=== PATIENT | female | born 1945 | race Caucasian/White ===

== ENCOUNTER 2022-03-22 09:50 | Inpatient (IN) | payer MEDICARE, OTHER ==
[~2022-03-22] VITALS: Ht 154.9 cm; Wt 54.9 kg
[2022-03-22 10:40] VITALS: BP 154/82
[2022-03-22] MEDS ORDERED: BLOOD SUGAR DIAGNOSTIC 1 EACH STRIP VI ONE (10:45)
[2022-03-22] MEDS ORDERED: MAG HYDROX/AL HYDROX/SIMETH 30 ML LIQUID UDC PO PRN (10:45)
[2022-03-22] MEDS ORDERED: MAGNESIUM HYDROXIDE 30 ML LIQUID UDC PO PRN (10:45)
[2022-03-22] MEDS ORDERED: LORAZEPAM 0.5 MG TABLET PO PRN (10:45)
--- NOTE | 2022-03-22 11:00 | NUR ---
Admitted a case of 76 years old female from ER with history of Psychosis. Patient is on 5150 status. Patient arrived in a stretcher accompanied by RN. Initial report given by Lara WYNN. On admission patient was cooperative to physical assessment and vital signs. Skin body assessment revealed no significant skin integrity breakdown. Patient is continent of bladder and bowel. Vital signs within normal limits. Patient ambulates independently, lower extremities with normal limits. Upon face to face, patient appeared oriented to person, confused, redirectable, cooperative. Patient refused to sign to all admission documents. Patient was also offered brief orientation to unit rules and policies and given a copy of patient's rights handbook. Patient belongings were accounted and contraband removed. Psychiatrist Dr. Logan and Hospice Fellow Merly Fan were informed and orders were carried out. Patient is currently free from pain or any discomfort. Reassurance given. Fall and safety precautions implemented.
[2022-03-22 16:00] VITALS: BP 102/65
--- NOTE | 2022-03-22 17:41 | NUR ---
Patient is confused, disoriented, disorganized, cooperative with nursing care, paranoid about her belongings. Requires minimal assistance with ADL. Patient is A/O X 2 to person. Emotional support provided. Fall and safety precautions implemented.
[2022-03-22 20:06] VITALS: BP 132/66
[2022-03-23] MEDS: ZOLPIDEM 5 MG TABLET PO PRN ×2 (00:27→21:16)
--- NOTE | 2022-03-23 03:16 | NUR ---
GPS NOTES: Patient received with family member (daughter) in the room. Patient sleeping in the room after daughters visit. Patient woke up at 23:30, she is then wandering the unit, confused and constant re-direction needed. Language barrier identified as she only speaks [place] Citizen. She appears pleasant and cooperative with the newspaper writer. Fluids provided. Ambien given. Not effective. Patient stays mostly awake during shift. All safety measures in placed.
[2022-03-23 07:27] LABS: HEMATOCRIT 36.8 % (31.2-41.9); MEAN CORPUSCULAR HEMOGLOBIN 32.2 uug (24.7-32.8); MEAN CORPUSCULAR VOLUME 93.7 fL (75.5-95.3); PLATELET COUNT (AUTO) 219 K/uL (179-408)
[2022-03-23 07:30] VITALS: BP 113/69
[2022-03-23 07:34] LABS: CREATININE 1.1 mg/dL (0.6-1.3); POTASSIUM 4.1 mmol/L (3.5-5.1)
[2022-03-23] MEDS: MEMANTINE HCL 10 MG TABLET PO SCH ×2 (11:11→21:16)
[2022-03-23] MEDS: QUETIAPINE FUMARATE 25 MG TABLET PO SCH ×2 (11:11→17:01)
[2022-03-23] MEDS ORDERED: HYDR25TA86 GT (12:59)
[2022-03-23] MEDS ORDERED: MEMA10TA PO (12:59)
[2022-03-23] MEDS ORDERED: CELE-85 PO (13:00)
[2022-03-23] MEDS ORDERED: ALBU8.5H8 IH (13:00)
[2022-03-23] MEDS ORDERED: ASPI81TA31 PO (13:00)
[2022-03-23] MEDS ORDERED: ONDA-104 PO (13:00)
[2022-03-23] MEDS ORDERED: DONE5TAB34 PO (13:00)
[2022-03-23] MEDS ORDERED: TIMO5DRO18 EACHEYE (13:00)
[2022-03-23] MEDS ORDERED: ICOS1CAP PO (13:00)
[2022-03-23] MEDS ORDERED: QUET25TA PO (13:00)
[2022-03-23] MEDS ORDERED: CLON0.1T PO (13:00)
[2022-03-23] MEDS ORDERED: NORT25CA PO (13:00)
[2022-03-23] MEDS ORDERED: MONT10TA33 PO (13:00)
[2022-03-23] MEDS ORDERED: FURO40TA5 PO (13:00)
[2022-03-23] MEDS ORDERED: FOLI1TAB94 PO (13:00)
[2022-03-23] MEDS ORDERED: ROSU20TA2 PO (13:00)
[2022-03-23] MEDS ORDERED: NITR1PAT26 TD (13:00)
[2022-03-23] MEDS ORDERED: LUBI24CA5 PO (13:00)
[2022-03-23] MEDS ORDERED: FLUT1BLS6 IH (13:00)
[2022-03-23] MEDS ORDERED: PANT40TA49 PO (13:00)
[2022-03-23] MEDS: ACETAMINOPHEN 325 MG TABLET PO PRN (13:11)
--- NOTE | 2022-03-23 15:27 | NUR ---
Received patient awake in the hallway. Patient is cooperative with nursing care, compliant with medications, confused, disorganized, pleasant, calm. Patient is A/O X 2 to person. Tylenol 650 mg is given at 13:11 for lower back pain,effective. Reassurance given. Fall and safety precautions implemented.
[2022-03-23] MEDS ORDERED: ALBUTEROL SULFATE 8 GM HFA.AER.AD IH PRN (15:30)
[2022-03-23] MEDS ORDERED: ALBUTEROL SULFATE 2.5 MG/3 ML NEBU NEB PRN (15:30)
--- NOTE | 2022-03-23 15:45 | NUR ---
KAMRYN Initial Discharge Note: Pt currently resides at home located at [address] [place] [address]. Per pt's daughter, Vandana ([phone]), pt will either discharge home under the care of a full-time caregiver or to a long term facility upon discharge. KAMRYN will continue to work with pt, Vandana and to ensure a safe and proper discharge plan.
--- NOTE | 2022-03-23 15:46 | NUR ---
SW Family Contact: SW spoke with pt's daughter/DPOA, Elliot ([phone]), regarding pt's treatment and discharge plan. SW addressed all of Elliot's questions regarding pt's treatment at [facility] and her conversation with Dr. Logan via telephone. Elliot was very grateful and agreeable with the treatment plan. Elliot and this SW discussed pt's options upon discharge regarding home with caregiver or senior living facility. elliot stated she is open to suggestions by Dr. Logan and this SW. Elliot is agreeable to take it day by day and follow-up with pt's treatment with this SW throughout pt's stay.
--- NOTE | 2022-03-23 15:56 | NUR ---
Firearms Report: Regulatory Specialist completed and submitted a DOJ firearms report for 5150 grave disability certifications. A copy of report has been placed in patient chart.
[2022-03-23 16:00] VITALS: BP 118/78
[2022-03-23] MEDS: hydrALAZINE HCL 25 MG TABLET PO SCH (17:00)
[2022-03-23] MEDS: CLONIDINE HCL 0.1 MG TABLET PO SCH (17:00)
[2022-03-23] MEDS ORDERED: Medication Not On Formulary EA (Lubiprostone (Amitiza) 24 MCG) PO SCH (17:00)
[2022-03-23] MEDS: TIMOLOL MALEATE 0.5% OPHT DROP 5 ML BOTTLE EACHEYE SCH (17:02)
[2022-03-23 20:08] VITALS: BP 100/51
[2022-03-23] MEDS ORDERED: Medication Not On Formulary EA (Rosuvastatin Calcium (Crestor) 20 MG) PO SCH (21:00)
[2022-03-23] MEDS: DONEPEZIL 10 MG TABLET PO SCH (21:15)
[2022-03-23] MEDS: MONTELUKAST SODIUM 10 MG TABLET PO SCH (21:16)
[2022-03-23] MEDS: ATORVASTATIN 40 MG TABLET PO SCH (21:16)
--- NOTE | 2022-03-24 06:34 | NUR ---
GPS: SHIFT NOTE: RECEIVED PATIENT IN [place] PACING FROM NURSES STATION TO HER ROOM. PT IS COOPERATIVE WITH STAFF. PT IS COMPLIANT WITH MEDICATION NO ADVERSE REACTION FROM MEDICATION AND PT DENIES PAIN WHEN ASKED. BUT PT IS DISHEVELED IN DRESS AND APPEARS TO BE DISORGANIZED IN THOUGHTS AND THINGS SHE SAYS BUT SHE IS NOT ARGUMENTATIVE OR AGITATED. FALL AND SAFETY PRECAUTION MAINTAINED ORDERED.
[2022-03-24 07:30] VITALS: BP 129/73
[2022-03-24] MEDS: PANTOPRAZOLE SODIUM 40 MG TABLET.DR PO SCH (08:39)
[2022-03-24] MEDS: TIMOLOL MALEATE 0.5% OPHT DROP 5 ML BOTTLE EACHEYE SCH ×2 (08:40→17:24)
[2022-03-24] MEDS: hydrALAZINE HCL 25 MG TABLET PO SCH ×3 (08:42→17:00)
[2022-03-24] MEDS: FOLIC ACID 1 MG TABLET PO SCH (08:44)
[2022-03-24] MEDS: MEMANTINE HCL 10 MG TABLET PO SCH (08:44)
[2022-03-24] MEDS: QUETIAPINE FUMARATE 25 MG TABLET PO SCH ×2 (08:44→17:23)
[2022-03-24] MEDS: CELECOXIB 200 MG CAPSULE PO SCH (08:45)
[2022-03-24] MEDS: FUROSEMIDE 40 MG TABLET PO SCH (08:45)
[2022-03-24] MEDS: ASPIRIN 81 MG TAB.CHEW PO SCH (08:51)
[2022-03-24] MEDS: CLONIDINE HCL 0.1 MG TABLET PO SCH ×3 (08:52→17:00)
[2022-03-24] MEDS ORDERED: DONEPEZIL 5 MG TABLET PO SCH (09:00)
--- NOTE | 2022-03-24 14:28 | NUR ---
Received patient wandering in the hallway. Patient is A/O X 1 to person. Patient is confused, forgetful, disoriented, disorganized, trying to elope, compliant with medications. Patient requires more than minimal assistance with ADL. Reassurance given. Fall and safety precautions implemented.
[2022-03-24 16:51] VITALS: BP 106/59
[2022-03-24 20:40] VITALS: BP 101/60
[2022-03-24] MEDS: DONEPEZIL 10 MG TABLET PO SCH (21:19)
[2022-03-24] MEDS: ATORVASTATIN 40 MG TABLET PO SCH (21:19)
[2022-03-24] MEDS: MONTELUKAST SODIUM 10 MG TABLET PO SCH (21:19)
[2022-03-25] MEDS: LORAZEPAM 1 MG TABLET PO PRN (00:14)
--- NOTE | 2022-03-25 03:03 | NUR ---
Patient has been cooperative and compliant with medications. Reassurance provided frequently d/t confusion and the patient has labile moods. Happy and smiling one minute, then crying the next. Safety Stratiges are in place and Frequent rounding to ensure assistance to the patient when needed.
[2022-03-25] MEDS: PANTOPRAZOLE SODIUM 40 MG TABLET.DR PO SCH (06:05)
[2022-03-25 08:03] VITALS: BP 93/46
[2022-03-25] MEDS: ASPIRIN 81 MG TAB.CHEW PO SCH (08:37)
[2022-03-25] MEDS: TIMOLOL MALEATE 0.5% OPHT DROP 5 ML BOTTLE EACHEYE SCH ×2 (08:37→17:34)
[2022-03-25] MEDS: FOLIC ACID 1 MG TABLET PO SCH (08:37)
[2022-03-25] MEDS: MEMANTINE HCL 10 MG TABLET PO SCH (08:37)
[2022-03-25] MEDS: CELECOXIB 200 MG CAPSULE PO SCH (08:38)
[2022-03-25] MEDS: QUETIAPINE FUMARATE 25 MG TABLET PO SCH ×2 (08:38→17:36)
[2022-03-25] MEDS: hydrALAZINE HCL 25 MG TABLET PO SCH ×3 (08:40→17:35)
[2022-03-25] MEDS: FUROSEMIDE 40 MG TABLET PO SCH (08:42)
[2022-03-25] MEDS: GLUCERNA SHAKE 237 ML CAN PO SCH (08:42)
[2022-03-25] MEDS: CLONIDINE HCL 0.1 MG TABLET PO SCH ×3 (08:42→17:36)
[2022-03-25 16:12] VITALS: BP 123/72
[2022-03-25 19:51] VITALS: BP 98/46
[2022-03-25] MEDS: ATORVASTATIN 40 MG TABLET PO SCH (21:12)
[2022-03-25] MEDS: MONTELUKAST SODIUM 10 MG TABLET PO SCH (21:12)
[2022-03-25] MEDS: DONEPEZIL 10 MG TABLET PO SCH (21:12)
[2022-03-26] MEDS: PANTOPRAZOLE SODIUM 40 MG TABLET.DR PO SCH (05:18)
[2022-03-26 08:03] VITALS: BP 153/92
[2022-03-26] MEDS: FOLIC ACID 1 MG TABLET PO SCH (08:21)
[2022-03-26] MEDS: QUETIAPINE FUMARATE 25 MG TABLET PO SCH ×2 (08:21→16:37)
[2022-03-26] MEDS: ASPIRIN 81 MG TAB.CHEW PO SCH (08:21)
[2022-03-26] MEDS: hydrALAZINE HCL 25 MG TABLET PO SCH ×3 (08:22→16:38)
[2022-03-26] MEDS: FUROSEMIDE 40 MG TABLET PO SCH (08:22)
[2022-03-26] MEDS: MEMANTINE HCL 10 MG TABLET PO SCH (08:22)
[2022-03-26] MEDS: GLUCERNA SHAKE 237 ML CAN PO SCH (08:23)
[2022-03-26] MEDS: CLONIDINE HCL 0.1 MG TABLET PO SCH ×3 (08:24→16:39)
[2022-03-26] MEDS: TIMOLOL MALEATE 0.5% OPHT DROP 5 ML BOTTLE EACHEYE SCH ×2 (08:25→16:40)
[2022-03-26] MEDS: CELECOXIB 200 MG CAPSULE PO SCH (08:26)
[2022-03-26] MEDS: LORAZEPAM 1 MG TABLET PO PRN ×2 (12:54→20:09)
[2022-03-26] MEDS: ACETAMINOPHEN 325 MG TABLET PO PRN (12:55)
--- NOTE | 2022-03-26 15:23 | NUR ---
Received Patient is confused, disoriented, disorganized, cooperative with nursing care and medication . Cuban speaking only pacing in hallway with poor insight and poor judgement Requires minimal assistance with ADL. Patient is A/O X 2 to person. Emotional support provided. Fall and safety precautions implemented.
[2022-03-26 19:54] VITALS: BP 136/72
[2022-03-26] MEDS: DONEPEZIL 10 MG TABLET PO SCH (20:09)
[2022-03-26] MEDS: MONTELUKAST SODIUM 10 MG TABLET PO SCH (20:09)
[2022-03-26] MEDS: ATORVASTATIN 40 MG TABLET PO SCH (20:09)
[2022-03-27] MEDS: PANTOPRAZOLE SODIUM 40 MG TABLET.DR PO SCH (06:00)
[2022-03-27 08:12] VITALS: BP 127/72
[2022-03-27] MEDS: ASPIRIN 81 MG TAB.CHEW PO SCH (08:29)
[2022-03-27] MEDS: FUROSEMIDE 40 MG TABLET PO SCH (08:29)
[2022-03-27] MEDS: QUETIAPINE FUMARATE 25 MG TABLET PO SCH ×3 (08:29→20:47)
[2022-03-27] MEDS: MEMANTINE HCL 10 MG TABLET PO SCH (08:30)
[2022-03-27] MEDS: CELECOXIB 200 MG CAPSULE PO SCH (08:30)
[2022-03-27] MEDS: CLONIDINE HCL 0.1 MG TABLET PO SCH ×3 (08:31→17:00)
[2022-03-27] MEDS: hydrALAZINE HCL 25 MG TABLET PO SCH ×3 (08:32→17:00)
[2022-03-27] MEDS: TIMOLOL MALEATE 0.5% OPHT DROP 5 ML BOTTLE EACHEYE SCH ×2 (08:33→17:22)
[2022-03-27] MEDS: FOLIC ACID 1 MG TABLET PO SCH (08:34)
[2022-03-27] MEDS: GLUCERNA SHAKE 237 ML CAN PO SCH (08:35)
--- NOTE | 2022-03-27 12:24 | NUR ---
KAMRYN Family Contact: KAMRYN spoke with pt's daughter/DPOA, Vandana ([phone]) in person during visitation, regarding discharge plan. Vandana is aware there is no discharge date for the pt yet as she is still being treated. Vandana was grateful for the teams effort and provided [facility] home health paperwork for the pt's medical doctor to sign prior to discharge. KAMRYN placed the paper on the pt's chart and will update Vandana once it is completed.
[2022-03-27 15:56] VITALS: BP 94/48
[2022-03-27 19:39] VITALS: BP 101/76
[2022-03-27] MEDS: DONEPEZIL 10 MG TABLET PO SCH (20:46)
[2022-03-27] MEDS: MONTELUKAST SODIUM 10 MG TABLET PO SCH (20:47)
[2022-03-27] MEDS: ATORVASTATIN 40 MG TABLET PO SCH (20:47)
[2022-03-27] MEDS: MELATONIN 3 MG TABLET PO SCH (20:47)
[2022-03-28] MEDS: PANTOPRAZOLE SODIUM 40 MG TABLET.DR PO SCH (06:45)
[2022-03-28 08:09] VITALS: BP 174/86
[2022-03-28] MEDS: FOLIC ACID 1 MG TABLET PO SCH (08:38)
[2022-03-28] MEDS: CELECOXIB 200 MG CAPSULE PO SCH (08:38)
[2022-03-28] MEDS: ASPIRIN 81 MG TAB.CHEW PO SCH (08:38)
[2022-03-28] MEDS: CLONIDINE HCL 0.1 MG TABLET PO SCH ×3 (08:39→16:45)
[2022-03-28] MEDS: FUROSEMIDE 40 MG TABLET PO SCH (08:39)
[2022-03-28] MEDS: MEMANTINE HCL 10 MG TABLET PO SCH (08:39)
[2022-03-28] MEDS: QUETIAPINE FUMARATE 25 MG TABLET PO SCH ×3 (08:39→20:30)
[2022-03-28] MEDS: hydrALAZINE HCL 25 MG TABLET PO SCH ×3 (08:40→16:45)
[2022-03-28] MEDS: GLUCERNA SHAKE 237 ML CAN PO SCH (08:41)
[2022-03-28] MEDS: TIMOLOL MALEATE 0.5% OPHT DROP 5 ML BOTTLE EACHEYE SCH ×2 (08:41→16:44)
--- NOTE | 2022-03-28 13:02 | NUR ---
SW Family Contact: SW spoke with pt's daughter/DPOA, Vandana ([phone]) regarding pt's discharge plan. Vandana asked for this SW to discuss with the MD tomorrow regarding pt's possible transfer to a facility with finnish speaking staff. Vandana is grateful for this teams effort. Vandana stated her mother needs in person finnish speaking and would appreciate any guidance from the staff. This SW stated this verse writer will speak to Dr. Logan regarding Vandana's request and inform her with an update once available. Vandana is aware and agreeable.
--- NOTE | 2022-03-28 15:15 | NUR ---
Received patient awake in the hallway. Patient is A/O X 2 to person. Patient is disorganized, confused, forgetful, cooperative with nursing care, compliant with medications, pleasant, sociable. Requires minimal assistance with ADL. Ambulates independently. Reassurance given. Fall and safety precautions implemented.
[2022-03-28 16:01] VITALS: BP 92/56
[2022-03-28] MEDS: ACETAMINOPHEN 325 MG TABLET PO PRN (18:34)
--- NOTE | 2022-03-28 19:15 | NUR ---
Patient is having chest pain rated 8 on the scale of 1 to 10. Furniture Finisher Apprentice ordered EKG and Troponin STAT.
[2022-03-28 20:15] VITALS: BP 94/55
[2022-03-28] MEDS: DONEPEZIL 10 MG TABLET PO SCH (20:30)
[2022-03-28] MEDS: ATORVASTATIN 40 MG TABLET PO SCH (20:31)
[2022-03-28] MEDS: MELATONIN 3 MG TABLET PO SCH (20:31)
[2022-03-28] MEDS: MONTELUKAST SODIUM 10 MG TABLET PO SCH (20:32)
[2022-03-28] MEDS ORDERED: NITROGLYCERIN 0.4 MG/TAB BOTTLE SL PRN (22:30)
--- NOTE | 2022-03-29 04:16 | NUR ---
GPS NOTES: @2100 Relayed EKG and troponin result to . Gave order for nitroglycerin 0.4 SL x 2 doses q10min apart for CP. Attempt to administer nitroglycerin as order however Patients BP is low, 95/55. Patient at this time is A&0x2. she is smiling at the va underwriter and cooperative. Patient closely monitored, she is mostly sleeping with no distress noted. @0400 patient is awake, BP rechecked 105/55, patient denies chest pain at this time and continue to sleep.
[2022-03-29] MEDS: PANTOPRAZOLE SODIUM 40 MG TABLET.DR PO SCH (06:14)
--- NOTE | 2022-03-29 06:27 | NUR ---
BP RECHECKED 135/55 HR=64. PATIENT CONTINUES TO DENY CHEST PAIN.
[2022-03-29 07:30] VITALS: BP 133/67
[2022-03-29] MEDS: CELECOXIB 200 MG CAPSULE PO SCH (08:42)
[2022-03-29] MEDS: FOLIC ACID 1 MG TABLET PO SCH (08:42)
[2022-03-29] MEDS: ASPIRIN 81 MG TAB.CHEW PO SCH (08:42)
[2022-03-29] MEDS: CLONIDINE HCL 0.1 MG TABLET PO SCH ×3 (08:42→17:00)
[2022-03-29] MEDS: QUETIAPINE FUMARATE 25 MG TABLET PO SCH ×3 (08:42→20:31)
[2022-03-29] MEDS: MEMANTINE HCL 10 MG TABLET PO SCH (08:42)
[2022-03-29] MEDS: FUROSEMIDE 40 MG TABLET PO SCH (08:43)
[2022-03-29] MEDS: TIMOLOL MALEATE 0.5% OPHT DROP 5 ML BOTTLE EACHEYE SCH ×2 (08:43→17:21)
[2022-03-29] MEDS: GLUCERNA SHAKE 237 ML CAN PO SCH (08:43)
[2022-03-29] MEDS: hydrALAZINE HCL 25 MG TABLET PO SCH ×3 (08:43→17:00)
--- NOTE | 2022-03-29 09:36 | NUR ---
Clinical SW Work Note: SW used the [employer] application support developer with educational interpreter, aDnika ID#[id number] to speak with the pt. Pt's questions and concerns for her discharge plan were addressed. SW informed staff and pt's daughter, Vandana [phone] on the pt's communication with the application support developer. Vandana was grateful.
--- NOTE | 2022-03-29 10:46 | NUR ---
KAMRYN Family Contact: KAMRYN contacted pt's daughter/DPOA, Vandana ([phone]) and left a voicemail answering Vandana's questions and informed her of pt's discharge order from Dr. Logan for this Sunday to return home per Vandana's request. KAMRYN will continue to contact and follow-up.
[2022-03-29] MEDS: ACETAMINOPHEN 325 MG TABLET PO PRN (13:48)
--- NOTE | 2022-03-29 15:19 | NUR ---
Received patient awake in her room. Patient is A/O X 2 to person. Patient is cooperative with nursing care, compliant with medications, calm, confused and forgetful at times. Tylenol 650 mg is given for headache, effective. Patient ambulates without assistance. Patient had court hearing today, cardiac/vascular sonographer gave 14 Day Probable Cause for GD only. Reassurance given. Fall and safety precautions implemented.
[2022-03-29 16:00] VITALS: BP 97/53
--- NOTE | 2022-03-29 18:29 | NUR ---
Patient is given Nitroglycerin 0.4 mg Sublingual 1 tab at 18:26 for chest pain rated 8 on the scale of 1 to 10, will be monitored for effectiveness in the next 10 minutes.
--- NOTE | 2022-03-29 18:48 | NUR ---
Nitroglycerin 0.4 mg Sublingual 1 tab at 18:26 for chest pain was effective.
[2022-03-29 19:44] VITALS: BP 101/61
[2022-03-29] MEDS: MELATONIN 3 MG TABLET PO SCH (20:30)
[2022-03-29] MEDS: MONTELUKAST SODIUM 10 MG TABLET PO SCH (20:30)
[2022-03-29] MEDS: ATORVASTATIN 40 MG TABLET PO SCH (20:31)
[2022-03-29] MEDS: DONEPEZIL 10 MG TABLET PO SCH (20:31)
--- NOTE | 2022-03-30 03:53 | NUR ---
GPS NOTES: Received ambulating in the hallway, she is pleasant and smiles alot when being spoken to. She denies chest pain during shift. She remains med compliant, self care and follows treatment plans. She sleeping well during shift as observed. No distress noted. All safety measures in placed.
[2022-03-30] MEDS: PANTOPRAZOLE SODIUM 40 MG TABLET.DR PO SCH (06:06)
[2022-03-30 07:30] VITALS: BP 133/81
[2022-03-30] MEDS: ASPIRIN 81 MG TAB.CHEW PO SCH (08:16)
[2022-03-30] MEDS: CELECOXIB 200 MG CAPSULE PO SCH (08:16)
[2022-03-30] MEDS: hydrALAZINE HCL 25 MG TABLET PO SCH (08:17)
[2022-03-30] MEDS: FUROSEMIDE 40 MG TABLET PO SCH (08:18)
[2022-03-30] MEDS: QUETIAPINE FUMARATE 25 MG TABLET PO SCH ×3 (08:18→20:43)
[2022-03-30] MEDS: MEMANTINE HCL 10 MG TABLET PO SCH (08:18)
[2022-03-30] MEDS: FOLIC ACID 1 MG TABLET PO SCH (08:18)
[2022-03-30] MEDS: CLONIDINE HCL 0.1 MG TABLET PO SCH (08:19)
[2022-03-30] MEDS: TIMOLOL MALEATE 0.5% OPHT DROP 5 ML BOTTLE EACHEYE SCH ×2 (08:19→16:53)
[2022-03-30] MEDS: GLUCERNA SHAKE 237 ML CAN PO SCH (08:20)
[2022-03-30 16:00] VITALS: BP 125/69
--- NOTE | 2022-03-30 16:42 | NUR ---
Received patient awake in her room. Patient is A/O X 2 to person. Patient is calm, sociable, confused, forgetful, disorganized. Patient ambulates independently. Active listening provided. Fall and safety precautions implemented.
[2022-03-30 20:07] VITALS: BP 143/91
[2022-03-30] MEDS: MELATONIN 3 MG TABLET PO SCH (20:43)
[2022-03-30] MEDS: MONTELUKAST SODIUM 10 MG TABLET PO SCH (20:43)
[2022-03-30] MEDS: ATORVASTATIN 40 MG TABLET PO SCH (20:43)
[2022-03-30] MEDS: DONEPEZIL 10 MG TABLET PO SCH (20:43)
[2022-03-30] MEDS: LORAZEPAM 1 MG TABLET PO PRN (22:47)
--- NOTE | 2022-03-31 05:25 | NUR ---
Patient has been up and down during the night. Confused and disoriented. The patient is medication compliant , but has labile moods. Safety Stratiges in place and redirection provided when needed. Continuing to assist the patient with ADLs as needed.
[2022-03-31] MEDS: PANTOPRAZOLE SODIUM 40 MG TABLET.DR PO SCH (06:02)
[2022-03-31 07:30] VITALS: BP 174/77
[2022-03-31] MEDS: FOLIC ACID 1 MG TABLET PO SCH (08:49)
[2022-03-31] MEDS: ASPIRIN 81 MG TAB.CHEW PO SCH (08:49)
[2022-03-31] MEDS: LORAZEPAM 1 MG TABLET PO PRN ×2 (08:49→22:20)
[2022-03-31] MEDS: QUETIAPINE FUMARATE 25 MG TABLET PO SCH ×3 (08:50→20:30)
[2022-03-31] MEDS: FUROSEMIDE 40 MG TABLET PO SCH (08:50)
[2022-03-31] MEDS: TIMOLOL MALEATE 0.5% OPHT DROP 5 ML BOTTLE EACHEYE SCH ×2 (08:51→16:13)
[2022-03-31] MEDS: CELECOXIB 200 MG CAPSULE PO SCH (08:51)
[2022-03-31] MEDS: GLUCERNA SHAKE 237 ML CAN PO SCH (08:52)
[2022-03-31] MEDS: MEMANTINE HCL 10 MG TABLET PO SCH (08:53)
--- NOTE | 2022-03-31 09:48 | NUR ---
Clinical SW Work Note: SW used the Retail Optimization procedure analyst with translator interpreter, Kristin ID#[id number] to speak with the pt. Pt's questions and concerns for her discharge plan were addressed. SW informed staff and pt's daughter, Vandana [phone] and staff on the pt's communication with the procedure analyst.
[2022-03-31 10:00] VITALS: BP 135/63
--- NOTE | 2022-03-31 10:00 | NUR ---
Rechecked patient' B/P is 135/63,after Ativan 1 mg given .
--- NOTE | 2022-03-31 14:35 | NUR ---
Received patient is confused and disoriented compliant with all medication and care, pacing in the unit with poor insight and judgement. able to follow direction encouraged to attend in group activity .
--- NOTE | 2022-03-31 15:17 | NUR ---
KAMRYN DPOA Contact: KAMRYN contacted pt's daughter/DPOA, Vandana ([phone]) and discussed pt's discharge plan. Vandana stated she would like the pt to possibly discharge to a group home facility or assisted living. Vandana stated she will research and inform this SW next week and Dr. Logan.
[2022-03-31 16:00] VITALS: BP 126/75
[2022-03-31 20:01] VITALS: BP 110/64
[2022-03-31] MEDS: DONEPEZIL 10 MG TABLET PO SCH (20:30)
[2022-03-31] MEDS: ATORVASTATIN 40 MG TABLET PO SCH (20:31)
[2022-03-31] MEDS: MELATONIN 3 MG TABLET PO SCH (20:31)
[2022-03-31] MEDS: MONTELUKAST SODIUM 10 MG TABLET PO SCH (20:32)
[2022-04-01] MEDS: PANTOPRAZOLE SODIUM 40 MG TABLET.DR PO SCH (05:58)
[2022-04-01 07:50] VITALS: BP 132/82
[2022-04-01] MEDS: CELECOXIB 200 MG CAPSULE PO SCH (08:23)
[2022-04-01] MEDS: FUROSEMIDE 40 MG TABLET PO SCH (08:23)
[2022-04-01] MEDS: MEMANTINE HCL 10 MG TABLET PO SCH (08:23)
[2022-04-01] MEDS: FOLIC ACID 1 MG TABLET PO SCH (08:23)
[2022-04-01] MEDS: QUETIAPINE FUMARATE 25 MG TABLET PO SCH ×3 (08:24→20:47)
[2022-04-01] MEDS: ASPIRIN 81 MG TAB.CHEW PO SCH (08:25)
[2022-04-01] MEDS: GLUCERNA SHAKE 237 ML CAN PO SCH (08:26)
[2022-04-01] MEDS: TIMOLOL MALEATE 0.5% OPHT DROP 5 ML BOTTLE EACHEYE SCH ×2 (09:19→17:04)
--- NOTE | 2022-04-01 14:52 | NUR ---
Patient is pleasantly confused, sociable, forgetful, compliant with medications, calm, and cooperative. A/O X 2 to person. Reassurance given. Fall and safety precautions implemented.
[2022-04-01 16:32] VITALS: BP 124/91
[2022-04-01 20:00] VITALS: BP 131/76
[2022-04-01] MEDS: ATORVASTATIN 40 MG TABLET PO SCH (20:48)
[2022-04-01] MEDS: MONTELUKAST SODIUM 10 MG TABLET PO SCH (20:48)
[2022-04-01] MEDS: DONEPEZIL 10 MG TABLET PO SCH (20:48)
[2022-04-01] MEDS: MELATONIN 3 MG TABLET PO SCH (20:49)
[2022-04-01] MEDS: LORAZEPAM 1 MG TABLET PO PRN (21:24)
[2022-04-01] MEDS: ZOLPIDEM 5 MG TABLET PO PRN (23:12)
--- NOTE | 2022-04-02 05:28 | NUR ---
GPS NOTES: Patient observed to be wandering around the unit, she is anxious, Ativan given. Effective. Patient sleeping with no distress noted. Safety strategies in placed.
[2022-04-02] MEDS: PANTOPRAZOLE SODIUM 40 MG TABLET.DR PO SCH (06:24)
[2022-04-02 08:22] VITALS: BP 154/87
[2022-04-02] MEDS: ASPIRIN 81 MG TAB.CHEW PO SCH (08:25)
[2022-04-02] MEDS: CELECOXIB 200 MG CAPSULE PO SCH (08:25)
[2022-04-02] MEDS: FOLIC ACID 1 MG TABLET PO SCH (08:25)
[2022-04-02] MEDS: QUETIAPINE FUMARATE 25 MG TABLET PO SCH ×3 (08:26→20:52)
[2022-04-02] MEDS: FUROSEMIDE 40 MG TABLET PO SCH (08:26)
[2022-04-02] MEDS: GLUCERNA SHAKE 237 ML CAN PO SCH (08:27)
[2022-04-02] MEDS: MEMANTINE HCL 10 MG TABLET PO SCH (08:27)
[2022-04-02] MEDS: TIMOLOL MALEATE 0.5% OPHT DROP 5 ML BOTTLE EACHEYE SCH ×2 (08:28→16:53)
--- NOTE | 2022-04-02 14:33 | NUR ---
patient is confused and disoriented [place]er speaking only compliant with all medication and care, pacing in the unit with poor insight and judgement. able to follow direction encouraged to attend in group activity .
[2022-04-02 16:13] VITALS: BP 144/88
[2022-04-02] MEDS: ACETAMINOPHEN 325 MG TABLET PO PRN (16:54)
[2022-04-02] MEDS: LISINOPRIL 5 MG TABLET PO SCH (17:15)
[2022-04-02 19:58] VITALS: BP 133/85
[2022-04-02] MEDS: ATORVASTATIN 40 MG TABLET PO SCH (20:51)
[2022-04-02] MEDS: DONEPEZIL 10 MG TABLET PO SCH (20:51)
[2022-04-02] MEDS: MELATONIN 3 MG TABLET PO SCH (20:52)
[2022-04-02] MEDS: MONTELUKAST SODIUM 10 MG TABLET PO SCH (20:53)
[2022-04-03] MEDS: PANTOPRAZOLE SODIUM 40 MG TABLET.DR PO SCH (06:12)
[2022-04-03] MEDS: LISINOPRIL 5 MG TABLET PO SCH (08:17)
[2022-04-03] MEDS: ASPIRIN 81 MG TAB.CHEW PO SCH (08:17)
[2022-04-03] MEDS: QUETIAPINE FUMARATE 25 MG TABLET PO SCH ×3 (08:17→20:03)
[2022-04-03] MEDS: CELECOXIB 200 MG CAPSULE PO SCH (08:18)
[2022-04-03] MEDS: FOLIC ACID 1 MG TABLET PO SCH (08:18)
[2022-04-03] MEDS: FUROSEMIDE 40 MG TABLET PO SCH (08:19)
[2022-04-03] MEDS: TIMOLOL MALEATE 0.5% OPHT DROP 5 ML BOTTLE EACHEYE SCH ×2 (08:19→17:10)
[2022-04-03] MEDS: MEMANTINE HCL 10 MG TABLET PO SCH (08:19)
[2022-04-03] MEDS: GLUCERNA SHAKE 237 ML CAN PO SCH (08:20)
[2022-04-03 09:04] VITALS: BP 116/70
--- NOTE | 2022-04-03 09:42 | NUR ---
Clinical SW Work Note: SW used the Mary kennel worker with interpreter for the deafShea ID #[id number] to discuss pt's discharge plan and individual therapy with the pt. Pt was aware and agreeable.
--- NOTE | 2022-04-03 14:37 | NUR ---
KAMRYN DPOA Contact: KAMRYN contacted pt's daughter/DPOA, Vandana [phone] and discussed pt's discharge locations. Vandana requested [facility] facilities in [place]. KAMRYN provided [facility] contact information and [facility] per Dr. Logan's request. Vandana was grateful and stated she will visit the facilities and contact this hand sign writer.
[2022-04-03 16:13] VITALS: BP 144/74
[2022-04-03 19:42] VITALS: BP 130/84
[2022-04-03] MEDS: LORAZEPAM 1 MG TABLET PO PRN (19:45)
[2022-04-03] MEDS: ATORVASTATIN 40 MG TABLET PO SCH (20:03)
[2022-04-03] MEDS: DONEPEZIL 10 MG TABLET PO SCH (20:04)
[2022-04-03] MEDS: MELATONIN 3 MG TABLET PO SCH (20:04)
[2022-04-03] MEDS: MONTELUKAST SODIUM 10 MG TABLET PO SCH (20:05)
--- NOTE | 2022-04-04 03:43 | NUR ---
No changes. This patient is pleasant, medication compliant but anxious at times. Safety Stratiges remain in place and continuing to assess the patients needs and provide assistance as needed. No acute distress noted at this time.
[2022-04-04] MEDS: PANTOPRAZOLE SODIUM 40 MG TABLET.DR PO SCH (06:14)
[2022-04-04 07:47] VITALS: BP 144/77
[2022-04-04] MEDS: ASPIRIN 81 MG TAB.CHEW PO SCH (08:10)
[2022-04-04] MEDS: TIMOLOL MALEATE 0.5% OPHT DROP 5 ML BOTTLE EACHEYE SCH ×2 (08:10→17:13)
[2022-04-04] MEDS: FOLIC ACID 1 MG TABLET PO SCH (08:11)
[2022-04-04] MEDS: CELECOXIB 200 MG CAPSULE PO SCH (08:11)
[2022-04-04] MEDS: FUROSEMIDE 40 MG TABLET PO SCH (08:12)
[2022-04-04] MEDS: MEMANTINE HCL 10 MG TABLET PO SCH (08:12)
[2022-04-04] MEDS: QUETIAPINE FUMARATE 25 MG TABLET PO SCH ×3 (08:12→20:15)
[2022-04-04] MEDS: LISINOPRIL 5 MG TABLET PO SCH (08:12)
[2022-04-04] MEDS: GLUCERNA SHAKE 237 ML CAN PO SCH (08:13)
--- NOTE | 2022-04-04 09:55 | NUR ---
Clinical SW Work Note: SW used the IMVU tanker driver with interpreter translator, shanelle ID #[id number] to discuss pt's final discharge plan details and individual therapy with the pt. Pt was aware and agreeable. Pt was grateful for the help.
[2022-04-04 15:12] VITALS: BP 114/64
--- NOTE | 2022-04-04 15:13 | NUR ---
patient is pleasant confused pacing in the unit, compliant with all nursing care and medication. denies any pain or discomfort , Zambian speaking only veterinary virologist phone used as needed, possible D/C home in AM.
[2022-04-04 19:45] VITALS: BP 146/75
[2022-04-04] MEDS: LORAZEPAM 1 MG TABLET PO PRN (20:14)
[2022-04-04] MEDS: ATORVASTATIN 40 MG TABLET PO SCH (20:15)
[2022-04-04] MEDS: MONTELUKAST SODIUM 10 MG TABLET PO SCH (20:15)
[2022-04-04] MEDS: MELATONIN 3 MG TABLET PO SCH (20:17)
[2022-04-04] MEDS: DONEPEZIL 10 MG TABLET PO SCH (20:17)
[2022-04-05] MEDS: PANTOPRAZOLE SODIUM 40 MG TABLET.DR PO SCH (05:45)
[2022-04-05 07:30] VITALS: BP 127/70
[2022-04-05] MEDS: FUROSEMIDE 40 MG TABLET PO SCH (08:34)
[2022-04-05] MEDS: CELECOXIB 200 MG CAPSULE PO SCH (08:34)
[2022-04-05 08:35] VITALS: BP 127/70
[2022-04-05] MEDS: LISINOPRIL 5 MG TABLET PO SCH (08:35)
[2022-04-05] MEDS: FOLIC ACID 1 MG TABLET PO SCH (08:35)
[2022-04-05] MEDS: MEMANTINE HCL 10 MG TABLET PO SCH (08:35)
[2022-04-05] MEDS: ASPIRIN 81 MG TAB.CHEW PO SCH (08:36)
[2022-04-05] MEDS: QUETIAPINE FUMARATE 25 MG TABLET PO SCH (08:36)
[2022-04-05] MEDS: TIMOLOL MALEATE 0.5% OPHT DROP 5 ML BOTTLE EACHEYE SCH (08:37)
[2022-04-05] MEDS: GLUCERNA SHAKE 237 ML CAN PO SCH (08:37)
--- NOTE | 2022-04-05 10:34 | NUR ---
KAMRYN Discharge Note: Pt will be discharged home located at [address] [place] [phone] ([phone]) via patients daughter/JIAN Kaur private vehicle transportation at 11AM. KAMRYN spoke with Vandana who states they are ready to accept the patient home today. Pt is aware and agreeable with discharge plan. Pt is alert and oriented x2, is unable to plan for self-care at this time. However, pt is willing to accept care by her family and [facility] home health at home. Pt denies any suicidal or homicidal ideation. Pt will follow-up with a psychiatrist and psychologist at [facility] located at [address] [place] [phone] ([phone]) via teletherapy upon discharge on April 14 at 1:30PM confirmed by Ck. Pt and Vandana are aware of the discharge follow-up appointments. Pt will be assigned her clinicians after her consultation by [facility]. Pt presents with calm mood and congruent affect. PHARMACY: [facility] [address] [place] [address] ([phone]).
--- NOTE | 2022-04-05 11:33 | NUR ---
Received orders to discharge this patient to home located at [address] [place] [address] ([phone]) via patients daughter/DPDANK Kaur private vehicle transportation at 11AM. Patient is agreeable with discharge plans, but refused signing discharge documentation. Patient denies SI/HI AH/VH, SOB, pain or any discomfort. Patient belongings were returned to patient. Patient left unit at 11:35 am. Emotional support provided. Fall and safety precautions implemented.
== END 2022-04-05 11:35 | disposition home or self-care (01) | DRG 885 ==
LOC: ER 09:50 → GPS 10:18
PROVIDERS: ADMIT Psychiatry & Neurology Psychiatry; ATTEND Nurse Practitioner Acute Care
DX: F29 Unspecified psychosis not due to a substance or known physiological condition (principal); F03.918 Unspecified dementia, unspecified severity, with other behavioral disturbance; H40.9 Unspecified glaucoma; J44.9 Chronic obstructive pulmonary disease, unspecified; K21.9 Gastro-esophageal reflux disease without esophagitis; M19.90 Unspecified osteoarthritis, unspecified site; Z91.14 Patient's other noncompliance with medication regimen; Z73.6 Limitation of activities due to disability; F39 Unspecified mood [affective] disorder; R26.89 Other abnormalities of gait and mobility
CPT/HCPCS: 36415; 84484; 85025; 93005